=== PATIENT | female | born 1960 | race Two or more races ===

== ENCOUNTER 2022-05-13 11:00 | Day surgery (SDC) | payer OTHER ==
[~2022-05-13] VITALS: Ht 160 cm; Wt 68.0 kg
[~2022-05-13 11:00] MED LIST: HUMIRA40 MG/0.2; METHOTREXA25 MG/1 M5 SUBCUTANEO
== END 2022-05-13 22:20 | disposition home or self-care (01) ==
LOC: CIR.AMB 11:00
PROVIDERS: ATTEND Student in an Organized Health Care Education/Training Program
DX: N88.2 Stricture and stenosis of cervix uteri (principal); Z20.822 Contact with and (suspected) exposure to COVID-19; Z86.16 Personal history of COVID-19